=== PATIENT | male | born 1985 | race Caucasian/White ===

== ENCOUNTER 2019-05-08 00:56 | Emergency (ER) | payer SELFPAY ==
[2019-05-08] VITALS (22 sets, daily range): BP systolic 132–166; BP diastolic 69–91; PULSE 78–107; RESP 14–18; TEMP 36.8; O2SAT 97; BMI 29.2
[2019-05-08 01:45] LABS: Absolute Lymphocyte Count 1.95 X10^3/uL (0.83-4.51); Absolute Neutrophil Count 5.6 X10^3/uL (2.0-7.7); Basophil# 0.04 X10^3/uL; Basophil% 0.5 % (0-1); Eosinophil# 0.07 X10^3/uL; Eosinophils% 0.8 % (0-5); Hematocrit 43.7 % (40-54); Hemoglobin 16.1 g/dL (13.0-16.5); Lymphocyte # 1.95 X10^3/ul (4.0); Lymphocyte % 23.3 % (19-41); Mean Corp Hgb Conc 36.8 g/dL (32-36); Mean Corpuscular Hgb 33.8 pg (27.0-32.0); Mean Corpuscular Volume 91.6 fL (80-94); Mean Platelet Vol. 11.3 fl (6.2-12.0); Monocyte# 0.66 X10^3/uL; Monocyte% 7.9 % (0-10); NRBC Flagged by Analyzer 0 % (0-5); Neutrophil # 5.63 X10^3/uL (2.7-7.7); Neutrophil % 67.3 % (47-70); Platelet Count 190 K/mm3 (150-450); RBC Distribution Width CV 13.7 % (11.6-14.6); RBC Distribution Width SD 44.6 fl (35.1-43.9); Red Blood Count 4.77 M/mm3 (4.6-6.2); White Blood Count 8.4 K/mm3 (4.4-11.0)
[2019-05-08 01:46] LABS: Anion Gap 8 (5-15); BUN 10 mg/dL (7-18); BUN/Creat Ratio 9.5 RATIO (10-20); Calcium,Total 8.9 mg/dL (8.5-10.1); Chloride 111 mmol/L (98-107); Creatinine, Serum 1.05 mg/dL (0.70-1.30); EST Glomerular Filtration Rate 85 mL/min (>60); Est Glom Filt Rate - Afr Amer 103 mL/min (>60); Estimated Creatinine Clearance 104.58 ml/min; Glucose 92 mg/dL (74-106); Potassium 3.1 mmol/L (3.5-5.1); Sodium Level 143 mmol/L (136-145)
[2019-05-08 02:13] LABS: Amphetamine Urine VISTA NEGATIVE (<1000 ng/mL); Barbiturate Urine VISTA NEGATIVE (< 200 ng/mL); Benzodiazepine Urine VISTA NEGATIVE (< 200 ng/mL); Cocaine Urine VISTA NEGATIVE (< 300 ng/mL); Ecstacy Urine VISTA NEGATIVE (< 500 ng/mL); Methadone Urine VISTA NEGATIVE (< 300 ng/mL); PCP Urine VISTA NEGATIVE (< 25 ng/mL); THC Urine VISTA NEGATIVE (< 50 ng/mL); Vista UDS pH Range 6
--- NOTE | 2019-05-08 02:26 | ED.DCSUM_ITS ---
- ER Visit Summary Date of Service: 05/08/19 Chief Complaint: [Depression and suicidal ideation] History of Present Illness: The patient is a 33 M [presents to the emergency department via police escort. Patient was pink slipped with concern for suicidal ideation. Police pink slip states that patient is having relationship issues and that he and his are part at this time and he has not seen his children last 3 days. Patient also states that he had a child in 2017. Patient is having employment problems. Patient apparently sent a text wishing his friends well and that he is sorry. Patient also posted a message on Facebook stating he does not know how much more he can take. He also told an off-duty police officer crime prevention that he had a knife and wanted to get shot. Patient states that the messages were taken out of context. Patient denies feeling suicidal. Patient denies feeling depressed. He does admit to drinking alcohol this evening but typically does not drink. He denies any illicit drug use. Patient denied being . Patient is never been hospitalized before for depression. Patient seems to minimize everything and is not very forthcoming with answers. He denies any homicidal ideations. He denies auditory or visual hallucinations.] Physical Examination: [HEENT-PERRLA, EOMI. Cranial nerves II through XII grossly intact. TMs clear. Mucous membranes moist. No adenopathy. Cardiovascular-regular rate and rhythm without murmur or ectopy Lungs-clear to auscultation, chest wall stable without crepitus or subcu emphysema Abdomen-normoactive bowel sounds, soft, nontender, no rebound or rigidity, no peritoneal signs. Extremities-intact ?4, normal range of motion, normal pulses, atraumatic] Test Results: [CBC with differential obtained was normal. Chemistries unremarkable. Toxicology was normal. Alcohol was 139.] Emergency Department Course and Treatment: [Patient was evaluated by crisis. Patient continues to minimize and deflect. He continues to state that he is not suicidal. I was able to see his message that he posted on Facebook and I have concerns that it appears in the message that he saying goodbye to friends and stating that he is going to check out. I was able to speak with patient's ex- fianc? who left him 1 week ago and also spoke with patient's good friend who is a police officer crime prevention. They went looking for him today in search for 3 hours before the friend found him at his home behind shack and patient was standing in deep mud in flip-flops and appeared intoxicated. Patient told his friend that he had a knife and asked his friend to put his gun up against his heart and shoot them. The ex-figiselle? also has concerns about patient being left alone with their 2 daughters. Patient apparently has been driving by her current place of residence frequently and is going through her messages. He has not been sleeping or or eating. He has been displaying abnormal behavior and has been self-medicating with alcohol which he typically does not drink but has been of late. Both the friend and the ex-figiselle? are concerned that patient really needs help and they feel he would benefit from a psychiatric evaluation and treatment plan. There are multiple red flags indicating that the patient needs a psychiatric evaluation and treatment.] Treatment Plan: [Transfer to psychiatric facility for further work-up and treatment of depression and suspected suicidal ideation] Disposition: [Transfer] Impression: [Depression Suicidal ideation] This note was generated with Cloudvuation software. It may contain incorrect words, spelling, and punctuation that were not noted in review of the chart prior to signing ED Disposition - Plan for ED Patient: Referrals: Care Physician,No Primary [Primary Care Provider] -
--- NOTE | 2019-05-08 05:09 | ED.RN ---
PT GETTING MORE AGITATED, STANDING AT DOOR ETC. DR. SANABRIA WANTED POLICE CALLED. DISPATCH WAS CALLED AND POLICE ARE CURRENTLY IN ED ON STAND BY.
[2019-05-08 06:00] LABS: AST(SGOT) 23 U/L (15-37); Alanine Aminotransfer ALT/SGPT 39 U/L (16-61); Albumin, Serum 4.1 g/dL (3.2-5.0); Alkaline Phosphatase 104 U/L (45-117); Bilirubin, Direct 0.18 mg/dL (0.00-0.30); Protein, Total 7.1 g/dL (6.4-8.2)
--- NOTE | 2019-05-08 07:38 | EKG12_ITS ---
Test Reason : [facility] Blood Pressure : / mmHG Vent. Rate : 078 BPM Atrial Rate : 078 BPM P-R Int : 176 ms QRS Dur : 088 ms QT Int : 390 ms P-R-T Axes : 059 044 040 degrees QTc Int : 444 ms Normal sinus rhythm Normal ECG Confirmed by STACI GILL, AWILDA ([id number]), slot editor LEONILA OTOOLE ([id number]) on 05/11/2019 9:35:43 AM Referred By: TINA Confirmed By:AWILDA SMALL MD
--- NOTE | 2019-05-08 10:00 | ED.RN ---
AMBREEN WITH [facility] CALLED; HE IS GOING TO CALL TO FOLLOW UP WITH [facility] FOR PLACEMENT UPDATE
--- NOTE | 2019-05-08 10:48 | ED.RN ---
PER SHARDA WHO SPOKE WITH AMBREEN AT [facility]; PT IS ACCEPTED BUT WAITING ON A BED, HE IS 5TH IN LINE
--- NOTE | 2019-05-08 17:36 | ED.RN ---
PT WAS ASKING ABOUT WHEN HE WILL BE PLACED. PT UPSET BECAUSE HE WANTS TO LEAVE. HE STATES THAT WE CANNOT MAKE HIM STAY AND THAT HE CAN LEAVE IF HE WANTS TO. ADVISED OFF PINK SLIPPED AND THAT HE WOULD BE ESCORTED BACK BY PD. STILL REPORTS THAT HE WANTS TO LEAVE. EDUCATED ABOUT PROCESS OF PD BRINGING HIM BACK AND POSSIBLE USE OF RESTRAINTS. VERBALIZED UNDERSTANDING.
[2019-05-08] MEDS: Zolpidem Tartrate 5 MG Tablet PO (20:35)
[2019-05-09] VITALS (8 sets, daily range): BP systolic 140–152; BP diastolic 78–89; PULSE 76–88; RESP 15–18; TEMP 37; O2SAT 96–100
--- NOTE | 2019-05-09 07:37 | NURSING ---
CALLED [facility], NO ANSWER, JOSE ANGEL CALLED [facility], TALKED TO DAQUAN. HE IS ACCEPTED, BUT SHE DOESN'T KNOW IF HE WILL GET A BED TODAY
--- NOTE | 2019-05-09 08:15 | NURSING ---
NO OLD EKGS
--- NOTE | 2019-05-09 08:16 | ED.RN ---
BREAKFAST TRAY DELIVERED TO PT. REFUSED TO EAT, TRAY LEFT IN ROOM. PT REQUESTS UPDATE ABOUT STATUS OF TRANSFER TO [facility]. PT ADVISED THAT HE IS ACCEPTED BUT THAT THERE WAS STILL WAITING LIST FOR BED. WILL CONTINUE TO UPDATE WITH INFORMATION IT BECOMES AVAILABLE. PT BECOMING ANXIOUS, RESTLESS.
--- NOTE | 2019-05-09 12:17 | ED.RN ---
PT REQUESTING TO SPEAK WITH COUNSELOR TO BE RE-EVALUATED. THIS NURSE CONTACTED COUNSELING CENTER, WORKER TRANSFERRED TO PORTABLE PHONE TO SPEAK WITH PT
== END 2019-05-09 13:45 | disposition home or self-care (01) ==
PROVIDERS: Emergency Medicine; Emergency Provider Emergency Medicine
DX: F32.9 Major depressive disorder, single episode, unspecified (principal); R45.851 Suicidal ideations; Z72.0 Tobacco use
CPT/HCPCS: 80048; 80076; 80307; 80320; 85025; 93005; 99285; G0480

== ENCOUNTER 2023-12-09 10:03 | Emergency (ER) | payer BC, SELFPAY ==
[2023-12-09 10:04] VITALS: BP 182/100; PULSE 108; RESP 18; TEMP 37.3; O2SAT 98; BMI 41.7
[2023-12-09 10:25] VITALS: BP 174/81; PULSE 90; RESP 16; TEMP 37.3; O2SAT 98
[2023-12-09 10:41] LABS: Bacteria 0 SEEN /hpf (None Seen); Mucous, Urine 0 SEEN /hpf (<or=2+); Red Blood Cells-Urine 0 SEEN /hpf (0-5); Squamous Epithelial Cells - UA 0 SEEN /hpf (0-5); White Blood Cells 0 SEEN /hpf (0-5)
[2023-12-09 10:59] LABS: Color, Urine Straw (Yellow); Glucose, Dipstick Normal (Normal); Ketone-Dipstick Negative (Negative); Leukocyte Esterase-Dipstick Negative /ul (Negative); Nitrite-Dipstick Negative (Negative); Occult Blood-Urine Negative /ul (Negative); Protein-Dipstick Negative (Negative); Specific Gravity, Urine 1.005 (1.002-1.030); Urine Bilirubin Dipstick Negative (Negative); Urine Clarity Clear (Clear); Urine Urobilinogen Normal (Normal)
--- NOTE | 2023-12-09 11:22 | EDS_ITS ---
HPI History of Present Illness Chief Complaint: Complaint Informant: patient Onset/Context/Timing Onset: Today Context: Sudden Onset Timing: Continuous Quality: Sharp Location: Lower abdomen, lower back Worsened by: Walking Relieved by: Nothing Narrative Narrative: Patient presents with pain in his lower abdomen and groin that began today. Patient states it began rather suddenly while he was driving to work. Patient describes it as sharp. Patient states it is mainly over his lower abdomen but radiates into his testicles. Patient states it is worse with walking. Patient admits to some urinary urgency but denies any dysuria or hematuria. Patient states the pain radiates into his back. Patient admits to subjective fever but did not take his temperature. Patient went to the urgent care. Patient states he has a urinalysis there and referred him to the emergency department. [facility] Medical History (Updated 12/09/23 @ 14:[address] Pradeep Murillo DO) Subdural hematoma, post-traumatic Home Medications ?Medication ?Instructions ?Recorded ?Last Taken ?Type ciprofloxacin HCl 500 mg tablet 500 mg PO BID #20 TABLETS 12/09/23 Unknown Rx metronidazole 500 mg tablet 500 mg PO Q6H #40 tabs 12/09/23 Unknown Rx Allergy/AdvReac Type Severity Reaction Status Date / Time No Known Allergies Allergy Verified 05/08/19 07:33 Surgical History (Updated 12/09/23 @ 11:[address] Pradeep Murillo DO) Hx of brain surgery Social History Smoking Status: Current every day smoker tobacco type: cigarettes ROS ROS ED Constitutional Constitutional ED: Reports fever(s) and subjective; Denies chills Eyes Eyes: Denies blurry vision or change in vision ENT ENT ED: Denies rhinorrhea or sore throat Cardiovascular Cardiovascular: Denies chest pain or palpitations Respiratory/Chest Respiratory/Chest: Denies cough or dyspnea Gastrointestinal Gastrointestinal: Denies nausea or vomiting Genitourinary Genitourinary ED: Denies dysuria or hematuria Musculoskeletal Musculoskeletal: Reports back pain; Denies neck pain Integumentary Denies abscess or rash Neurologic Neurologic: Denies headache(s) or weakness Allergic/Immunologic Allergic/Immunologic ED: Denies mouth swelling or urticaria EXAM Physical Exam Const Vital Signs: 12/09/23 10:04 12/09/23 10:25 12/09/23 12:10 Temperature 99.1 F 99.1 F 97.9 F Temperature Source Temporal Temporal Oral Pulse Rate 108 H 90 84 Respiratory Rate 18 16 16 Blood Pressure 182/100 H 174/81 H 142/79 H Blood Pressure Mean 127 112 100 Pulse Ox 98 98 97 Oxygen Delivery Method Room Air Room Air Room Air 12/09/23 13:09 Temperature 99.9 F H Temperature Source Oral Pulse Rate 100 Respiratory Rate 18 Blood Pressure 136/80 H Blood Pressure Mean 98 Pulse Ox 94 Oxygen Delivery Method Room Air Positive well nourished and well developed General Appearance ED: well developed and NAD HEENT Reports moist mucous membranes Neck supple and no JVD Resp normal respiratory effort and clear to auscultation bilaterally Cardio regular rate and regular rhythm GI non-distended Palpation: soft and tender LLQ, RLQ and suprapubic; Negative for guarding or rebound tenderness present Neuro oriented x3, CN's II-XII intact bilaterally and no sensory deficits noted Sensorium / Orientation: alert Motor Exam: strength 5/5 throughout Psych mental status grossly normal MDM MDM MDM Narrative Medical decision making narrative: Differential diagnosis includes ureteral calculus, urinary tract infection, pyelonephritis, epididymitis, inguinal hernia, appendicitis, and viral illness. Urinalysis will be obtained to assess for urinary tract infection and hematuria. CBC will be obtained to assess for leukocytosis and anemia. Basic metabolic profile will be obtained to assess for electrolyte abnormality and renal function. CT scan of the abdomen pelvis will be obtained to assess for ureteral calculus, mass, and pyelonephritis. Lab Data Attestation: I reviewed the patient's lab results. Lab results narrative: CBC was reviewed. There is a mild leukocytosis of 11.5. The remainder is within normal limits. Basic metabolic profile was reviewed and was essentially within normal limits. Urinalysis was reviewed. There is no evidence of urinary tract infection or hematuria. Labs: Laboratory Results - last 24 hr 12/09/23 12/09/23 10:34 12:08 WBC 11.5 H RBC 4.49 L Hgb 14.0 Hct 40.1 MCV 89.3 MCH 31.2 MCHC 34.9 RDW Std Deviation 43.8 RDW Coeff of Herl[place] 13.4 Plt Count 199 MPV 11.6 Immature Gran % (Auto) 0.500 Neut % (Auto) 78.6 H Lymph % (Auto) 11.4 L [place] % (Auto) 8.8 Eos % (Auto) 0.4 Baso % (Auto) 0.3 Absolute Neuts (auto) 9.1 H Absolute Lymphs (auto) 1.31 Nucleated RBC % 0 Sodium 136 Potassium 3.7 Chloride 105 Carbon Dioxide 27.0 Anion Gap 4 L BUN 14 Creatinine 1.13 Estim Creat Clear Calc 120.29 Est GFR (MDRD) Af Amer 92 Est GFR (MDRD) Non-Af 76 BUN/Creatinine Ratio 12.4 Glucose 103 Calcium 8.9 Urine Color Straw Urine Clarity Clear Urine pH 7.0 Ur Specific [place] 1.005 Urine Protein Negative Urine Glucose (UA) Normal Urine Ketones Negative Urine Occult Blood Negative Urine Nitrite Negative Urine Bilirubin Negative Urine Urobilinogen Normal Ur Leukocyte Esterase Negative Urine RBC 0 SEEN Urine WBC 0 SEEN Ur Squamous Epith Cells 0 SEEN Urine Bacteria 0 SEEN Urine Mucus 0 SEEN Radiography Diagnostic Testing: Clinical Impression(s) from Imaging Studies Abdomen/Pelvis CT 12/09/23 11:40 IMPRESSION: Findings incomplete with acute sigmoid diverticulitis with inflammatory changes in the surrounding peritoneal fat. Sigmoid diverticulosis. No abnormal fluid collection is seen at this time. Electronically Signed: Sander Stearns MD at 12:23 EDT , CT scan of the abdomen pelvis was obtained. There is sigmoid diverticulitis but no evidence of perforation or abscess. There is no other acute abnormality noted. This was interpreted by the radiologist and was also independently reviewed by myself. Treatment and Re-Evaluation :: Patient was given morphine and Zofran here. Patient was given a dose of Cipro and Flagyl here. Patient was advised of his findings. Patient was given prescription for Cipro and Flagyl. Patient was instructed to follow-up with his primary care physician in 5 to 7 days. Patient was instructed to avoid alcohol while taking the Flagyl. Patient was instructed to return if worse in any way. Patient understood and was agreeable with the plan. All questions were answered. Discharge Plan Triage Chief Complaint: Complaint ED Provider: Pradeep Murillo Dx/Rx/DC Orders Clinical Impression: Diverticulitis, Abdominal pain Instructions: ED Diverticulitis Prescriptions: New metronidazole 500 mg tablet 500 mg PO Q6H Qty: 40 0RF ciprofloxacin HCl 500 mg tablet 500 mg PO BID Qty: 20 0RF Primary Care Provider: Care Physician,No Primary Referrals: Paco Coronel MD [Med Staff - Active Staff] - 5-7 Days Care Physician,No Primary [Primary Care Provider] - Print Language: Thai Disposition Disposition: Home, Self Care
--- NOTE | 2023-12-09 11:40 | CT_ITS ---
STUDY: CT ABDOMEN AND PELVIS WITHOUT CONTRAST REASON FOR EXAM: Male, 38 years old. Abdominal pain. RADIATION DOSAGE (If Supplied By Facility): CTDIvol = ( 18.44 ) mGy, DLP = ( 1557.76 ) mGycm TECHNIQUE: Transaxial images were obtained from the dome of the diaphragm to the symphysis pubis without oral contrast, and without intravenous contrast. Sagittal and coronal images were reconstructed. Individualized dose optimization techniques were used for this CT. COMPARISON: None. FINDINGS: The visualized lung bases are unremarkable. The visualized portions of the heart are within normal limits. Normal liver. Normal gallbladder and extrahepatic biliary system. Normal spleen. Normal pancreas. Normal bilateral adrenal glands. Normal right kidney. Normal left kidney. Normal visualized stomach. Normal small intestine. There is diverticulosis, with thickening of the colon wall, and pericolonic inflammation changes consistent with acute diverticulitis. Questionable localized contained pericolonic perforation. The appendix is visualized and appears normal. Normal abdominal aorta. Normal inferior vena cava. Normal retroperitoneum. Normal urinary bladder. Normal abdominal wall. Normal osseous structures. CT/Abdomen/Pelvis without Cont IMPRESSION: Findings incomplete with acute sigmoid diverticulitis with inflammatory changes in the surrounding peritoneal fat. Sigmoid diverticulosis. No abnormal fluid collection is seen at this time. Electronically Signed: Sander Stearns MD at 12:23 EDT ,
[2023-12-09 12:10] VITALS: BP 142/79; PULSE 84; RESP 16; TEMP 36.6; O2SAT 97
[2023-12-09] MEDS: Morphine 4 MG/ML Syringe IV (12:15)
[2023-12-09] MEDS: Ondansetron 4 MG/2 ML Vial IV (12:15)
[2023-12-09 12:24] LABS: Absolute Lymphocyte Count 1.31 X10^3/uL (0.83-4.51); Absolute Neutrophil Count 9.1 X10^3/uL (2.0-7.7); Basophil# 0.04 X10^3/uL; Basophil% 0.3 % (0-1); Eosinophil# 0.05 X10^3/uL; Eosinophils% 0.4 % (0-5); Hematocrit 40.1 % (40-54); Lymphocyte # 1.31 X10^3/ul (0.83-4.51); Lymphocyte % 11.4 % (19-41); Mean Corp Hgb Conc 34.9 g/dL (32-36); Mean Corpuscular Hgb 31.2 pg (27.0-32.0); Mean Corpuscular Volume 89.3 fL (80-94); Mean Platelet Vol. 11.6 fl (6.2-12.0); Monocyte# 1.01 X10^3/uL; Monocyte% 8.8 % (0-10); NRBC Flagged by Analyzer 0 % (0-5); Neutrophil # 9.07 X10^3/uL (2.7-7.7); Neutrophil % 78.6 % (47-70); Platelet Count 199 K/mm3 (150-450); RBC Distribution Width CV 13.4 % (11.6-14.6); RBC Distribution Width SD 43.8 fl (35.1-43.9); Red Blood Count 4.49 M/mm3 (4.6-6.2); White Blood Count 11.5 K/mm3 (4.4-11.0)
[2023-12-09 12:43] LABS: Anion Gap 4 (5-15); BUN 14 mg/dL (7-18); BUN/Creat Ratio 12.4 RATIO (10-20); Calcium,Total 8.9 mg/dL (8.5-10.1); Chloride 105 mmol/L (98-107); Creatinine, Serum 1.13 mg/dL (0.70-1.30); EST Glomerular Filtration Rate 76 mL/min (>60); Est Glom Filt Rate - Afr Amer 92 mL/min (>60); Estimated Creatinine Clearance 120.29 ml/min; Glucose 103 mg/dL (74-106); Potassium 3.7 mmol/L (3.5-5.1); Sodium Level 136 mmol/L (136-145)
[2023-12-09 13:09] VITALS: BP 136/80; PULSE 100; RESP 18; TEMP 37.7; O2SAT 94
[2023-12-09] MEDS: Ciprofloxacin 500 MG Tablet PO (14:28)
[2023-12-09] MEDS: metroNIDAZOLE 500 MG Tablet PO (14:28)
[2023-12-09 14:31] VITALS: BP 136/80; PULSE 100; RESP 18; TEMP 37.7; O2SAT 94
== END 2023-12-09 14:34 | disposition home or self-care (01) ==
PROVIDERS: Emergency Provider Emergency Medicine; Visit Provider Emergency Medicine
DX: K57.32 Diverticulitis of large intestine without perforation or abscess without bleeding (principal)
CPT/HCPCS: 74176; 80048; 81001; 85025; 96374; 96375; 99284; A4216; J2405